=== PATIENT | female | born 1950 | race Caucasian/White ===

== ENCOUNTER 2017-03-04 12:58 | Emergency (ER) | payer OTHER ==
[2017-03-04 13:37] LABS: #Basophils 0.1 thou/uL (0.0-0.2); #Eosinphils 0.2 thou/uL (0.0-0.7); #Lymphocytes 1.9 thou/uL (1.20-3.40); #Monocytes 0.7 thou/uL (0.11-0.59); #Neutrophils 5.5 thou/uL (1.40-6.50); %Basophils 0.9 % (0.0-1.0); %Eosinophils 2.4 % (0.0-10.0); %Lymphocytes 22.3 % (21.0-51.0); %Monocytes 8.6 % (0.0-10.0); Hematocrit 41.2 % (36.0-47.0); Mean Platelet Volume 8.6 fL (7.4-10.4); Red Blood Cell (RBC) Count 4.46 mill/uL (4.20-5.40); White Blood Cell (WBC) Count 8.4 thou/uL (4.8-10.8)
[2017-03-04 13:55] LABS: Lactic Acid - Sepsis 2.7 mmol/L (0.5-2.2)
[2017-03-04 14:01] LABS: ALT (SGPT) 48 U/L (8-55); AST (SGOT) 37 U/L (5-34); Alkaline Phosphatase 76 U/L (40-150); Anion Gap 17 mmol/L (10-20); BUN (Urea Nitrogen) 34 mg/dL (9.8-20.1); Bilirubin, Total 0.4 mg/dL (0.2-1.2); CK (CPK) 48 U/L (29-168); Calc. Creatinine Clearance 0 mL/min (70-130); Carbon Dioxide 22 mmol/L (23-31); Chloride 102 mmol/L (98-107); Estimated GFR-MDRD 29; Protein, Total 6.9 g/dL (6.0-8.3)
[2017-03-04 14:04] LABS: Troponin I Less than 0.010 ng/mL (< 0.028)
--- NOTE | 2017-03-04 15:51 | RAD ---
PORTABLE UPRIGHT FRONTAL CHEST RADIOGRAPH: DATE: 03/04/17. COMPARISON: 07/30/02. HISTORY: Low blood pressure with dizziness. FINDINGS: No pneumothorax or pleural fluid is seen. There is no focal consolidation or alveolar edema. The jami ngs appear hyperinflated. There is increased linear interstitial density noted, suggesting chronic i nterstitial opacity. There is a shoulder arthroplasty on the left. IMPRESSION: Mild diffuse increased interstitial density with pulmonary hyperinflation. No lobar consolidation or alveolar edema. POS: [facility]
[2017-03-04 15:58] LABS: Anion Gap 15 mmol/L (10-20); BUN (Urea Nitrogen) 33 mg/dL (9.8-20.1); Calc. Creatinine Clearance 0 mL/min (70-130); Calcium 8.8 mg/dL (7.8-10.44); Carbon Dioxide 20 mmol/L (23-31); Chloride 108 mmol/L (98-107); Estimated GFR-MDRD 33
--- NOTE | 2017-04-10 14:09 | EKG ---
Test Reason : Blood Pressure : / mmHG Vent. Rate : 084 BPM Atrial Rate : 084 BPM P-R Int : 150 ms QRS Dur : 084 ms QT Int : 354 ms P-R-T Axes : 034 -02 038 degrees QTc Int : 418 ms Sinus rhythm with Premature ventricular complexes with Abberant conduction Otherwise normal ECG Confirmed by ZI BENNETT, MAINE Soto ([id number]), medical editor SHAI HOOD ([id number]) on 04/10/2017 2:09:15 PM Referred By: Confirmed By:MAINE PINON MD
== END 2017-03-04 16:37 | disposition home or self-care (01) ==
LOC: ERS 12:58
DX: E86.0 Dehydration (principal); E11.9 Type 2 diabetes mellitus without complications; I10 Essential (primary) hypertension; J45.909 Unspecified asthma, uncomplicated; Z79.84 Long term (current) use of oral hypoglycemic drugs; Z79.899 Other long term (current) drug therapy
CPT/HCPCS: 36415; 71010; 80053; 82550; 82553; 83605; 83880; 84484; 85025; 93005; 96360; 96361

== ENCOUNTER 2017-03-09 09:48 | Emergency (ER) | payer OTHER ==
[2017-03-09 10:40] LABS: #Eosinphils 0.2 thou/uL (0.0-0.7); #Lymphocytes 1.7 thou/uL (1.20-3.40); #Monocytes 0.6 thou/uL (0.11-0.59); #Neutrophils 5.6 thou/uL (1.40-6.50); %Basophils 0.4 % (0.0-1.0); %Eosinophils 2.5 % (0.0-10.0); %Lymphocytes 20.3 % (21.0-51.0); %Monocytes 7.5 % (0.0-10.0); Hematocrit 42.6 % (36.0-47.0); Red Blood Cell (RBC) Count 4.65 mill/uL (4.20-5.40); White Blood Cell (WBC) Count 8.1 thou/uL (4.8-10.8)
[2017-03-09] MEDS ORDERED: Ondansetron HCl/PF 4 MG/2 ML Vial ONE (10:46)
[2017-03-09] MEDS ORDERED: Dexamethasone 10 MG/ML VIAL ONE (10:46)
[2017-03-09] MEDS ORDERED: Meclizine HCl 25 MG TAB ONE (10:46)
[2017-03-09] MEDS ORDERED: Lorazepam 2 MG/ML VIAL ONE (10:46)
[2017-03-09 11:02] LABS: ALT (SGPT) 43 U/L (8-55); AST (SGOT) 34 U/L (5-34); Alkaline Phosphatase 73 U/L (40-150); Anion Gap 15 mmol/L (10-20); BUN (Urea Nitrogen) 25 mg/dL (9.8-20.1); Bilirubin, Total 0.4 mg/dL (0.2-1.2); CK (CPK) 45 U/L (29-168); Calc. Creatinine Clearance 0 mL/min (70-130); Calcium 10.4 mg/dL (7.8-10.44); Carbon Dioxide 23 mmol/L (23-31); Chloride 104 mmol/L (98-107); Estimated GFR-MDRD 54; Globulin 3.1 g/dL (2.4-3.5); Lipase 16 U/L (8-78); Protein, Total 7.2 g/dL (6.0-8.3)
[2017-03-09 11:06] LABS: Troponin I 0.011 ng/mL (< 0.028)
--- NOTE | 2017-03-09 11:12 | CT ---
CT OF BRAIN PERFORMED WITHOUT CONTRAST ENHANCEMENT: HISTORY: Altered mental status. FINDINGS: There is some mild ventricular and sulcal prominence. There are no signs of intracerebral hemorrhage or extraaxial fluid collections. Mastoid air cells and visualized sinuses are clear. IMPRESSION: No acute intracranial abnormalities. POS: [facility]
--- NOTE | 2017-03-09 11:21 | RAD ---
CHEST 1 VIEW: HISTORY: Altered mental status. COMPARISON: Chest 1 view 03/04/17. FINDINGS: Lungs are hypoinflated with basilar atelectasis. Degenerative changes of the glenohumeral joint. IMPRESSION: No acute intrathoracic abnormality. POS: [facility]
== END 2017-03-09 12:30 | disposition home or self-care (01) ==
LOC: ERS 09:48
DX: R42 Dizziness and giddiness (principal); H55.00 Unspecified nystagmus; I10 Essential (primary) hypertension; J45.909 Unspecified asthma, uncomplicated; E11.9 Type 2 diabetes mellitus without complications; M19.90 Unspecified osteoarthritis, unspecified site; F31.9 Bipolar disorder, unspecified; Z79.4 Long term (current) use of insulin; Z79.899 Other long term (current) drug therapy
CPT/HCPCS: 36415; 70450; 71010; 80053; 82553; 83690; 83880; 84484; 85025; 93005; 96374; 96375; J1100; J2060; J2405

== ENCOUNTER 2017-03-21 18:46 | Emergency (ER) | payer OTHER ==
[2017-03-21 19:58] LABS: #Basophils 0.1 thou/uL (0.0-0.2); #Eosinphils 0.3 thou/uL (0.0-0.7); #Lymphocytes 1.9 thou/uL (1.20-3.40); #Monocytes 0.8 thou/uL (0.11-0.59); #Neutrophils 7.9 thou/uL (1.40-6.50); %Basophils 0.7 % (0.0-1.0); %Lymphocytes 17.1 % (21.0-51.0); %Monocytes 7.3 % (0.0-10.0); Hematocrit 42.6 % (36.0-47.0); Mean Platelet Volume 8.6 fL (7.4-10.4); Red Blood Cell (RBC) Count 4.69 mill/uL (4.20-5.40); White Blood Cell (WBC) Count 10.9 thou/uL (4.8-10.8)
[2017-03-21 20:19] LABS: Lactic Acid - Sepsis 2.1 mmol/L (0.5-2.2)
--- NOTE | 2017-03-21 20:28 | RAD ---
AP VIEW CHEST 03/21/17 HISTORY: Patient presents with history of dizziness, syncope. AP view chest is obtained on 03/21/17. Comparison is made to previous exam from 03/09/17. AP view chest demonstrates a left shoulder arthroplasty in place. The lungs are well aerated. No evid ence of active intrathoracic disease seen. No evidence of effusions, pneumonia or pneumothorax seen. IMPRESSION: Unremarkable AP view chest. POS: [facility]
[2017-03-21 20:34] LABS: Bilirubin Negative (Negative); Blood, Urine Negative (Negative); Glucose, Urine (Dipstick) 100 mg/dL (Negative); Ketone, Urine Negative (Negative); Nitrite Positive (Negative); Protein, Urine (Dipstick) Negative (Neg-Trace); Urobilinogen 0.2 mg/dL (0.2-1.0)
[2017-03-21 20:36] LABS: Bacteria/HPF 4+ HPF (None Seen); Hyaline Casts/LPF 4-6 HYALINE CAST LPF (0-3 Hyaline); RBC/HPF 0-3 HPF (0-3)
[2017-03-21 20:37] LABS: ALT (SGPT) 39 U/L (8-55); AST (SGOT) 28 U/L (5-34); Alkaline Phosphatase 77 U/L (40-150); Anion Gap 17 mmol/L (10-20); BUN (Urea Nitrogen) 26 mg/dL (9.8-20.1); Bilirubin, Total 0.4 mg/dL (0.2-1.2); CK (CPK) 52 U/L (29-168); Calc. Creatinine Clearance 0 mL/min (70-130); Calcium 10.9 mg/dL (7.8-10.44); Carbon Dioxide 25 mmol/L (23-31); Chloride 98 mmol/L (98-107); Estimated GFR-MDRD 45; Globulin 3.6 g/dL (2.4-3.5); Protein, Total 7.6 g/dL (6.0-8.3)
[2017-03-21] MEDS ORDERED: Ketorolac Tromethamine 30 MG/ML VIAL ONE (20:40)
[2017-03-21 20:47] LABS: Troponin I Less than 0.010 ng/mL (< 0.028)
--- NOTE | 2017-03-21 20:48 | CT ---
HISTORY: 66-year-old with history of dizziness, lightheadedness. Noncontrast enhanced CT images of the brain is obtained on 03/21/17. Comparison made to previous CT of the brain from March 09, 2017. No evidence of intracranial masses, hemorrhages, strokes or contusions seen. IMPRESSION: No significant interval changes noted since previous CT from 13 days earlier. POS: [facility]
--- NOTE | 2017-03-21 21:19 | RAD ---
AP VIEW PELVIS 03/21/17 HISTORY: Syncope. Pelvic pain. Fall. AP view pelvis is obtained. The pelvis demonstrates no evidence of pelvic fractures, subluxations or bony lesions. IMPRESSION: Unremarkable AP view pelvis. POS: [facility]
--- NOTE | 2017-03-21 22:06 | CT ---
CT CERVICAL SPINE 03/21/17 HISTORY: Fall. Neck pain. Axial images are obtained with coronal and sagittal reconstructions. The patient has had previous cervical spine fusion with fusion of the C3-4 vertebra. There is disc sp thomas height loss with mild anterolisthesis of C4 on C5. Disc space height loss with anterior and poste rior osteophytes seen at C5-6 and C6-7. These findings are compatible with changes of spondylosis. No evidence of acute cervical spine fracture is seen. Some T1-2 facet degenerative changes seen. IMPRESSION: Mid and lower cervical changes of spondylosis. No evidence of acute cervical spine fracture seen. POS: [facility]
== END 2017-03-21 22:16 | disposition home or self-care (01) ==
LOC: ERS 18:46
DX: N39.0 Urinary tract infection, site not specified (principal); E11.9 Type 2 diabetes mellitus without complications; F31.9 Bipolar disorder, unspecified; I10 Essential (primary) hypertension; J45.909 Unspecified asthma, uncomplicated; M19.90 Unspecified osteoarthritis, unspecified site; Z79.84 Long term (current) use of oral hypoglycemic drugs; Z79.899 Other long term (current) drug therapy
CPT/HCPCS: 70450; 71010; 72125; 72170; 80053; 81003; 81015; 82553; 83605; 84443; 84484; 85025; 93005; 94760; 96361; 96374; 96375; J0696; J1885